=== PATIENT | male | born 1965 | race Two or more races ===

== ENCOUNTER 2019-05-04 11:09 | Outpatient (CLI) | payer OTHER | END 2019-05-04 13:49 | disposition home or self-care (01) | LOC: MRI 11:09 | DX: M22.41 Chondromalacia patellae, right knee (principal) | CPT/HCPCS: 73718 ==

== ENCOUNTER 2021-11-08 11:21 | Outpatient (CLI) | payer OTHER | END 2021-11-08 11:27 | disposition home or self-care (01) | LOC: RAD 11:21 | PROVIDERS: ATTEND Specialist | DX: M54.50 Low back pain, unspecified (principal); M15.0 Primary generalized (osteo)arthritis ==

== ENCOUNTER 2024-09-23 20:50 | Emergency (ER) | payer OTHER ==
[~2024-09-23] VITALS: Ht 180.3 cm; Wt 99.8 kg
[2024-09-24] MEDS ORDERED: KETOROLAC TROMETHAMINE 60 MG VIAL IM STA (00:12)
[2024-09-24] MEDS ORDERED: ORPHENADRINE CITRATE 30 MG/ML AMPUL IM STA (00:13)
[2024-09-24] MEDS ORDERED: NORFLEX100MG PO (00:33)
[2024-09-24] MEDS ORDERED: KETO10TA2 PO (00:33)
== END 2024-09-24 00:40 ==
LOC: ER 20:53
DX: M54.50 Low back pain, unspecified (principal); I10 Essential (primary) hypertension